=== PATIENT | male | born 2000 | race Caucasian/White ===

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

== ENCOUNTER 2019-02-06 11:39 | Emergency (ER) | payer MEDICAID, SELFPAY ==
[2019-02-06 11:42] VITALS: BP 124/68; PULSE 78; RESP 16; TEMP 36.7; O2SAT 97
--- NOTE | 2019-02-06 12:11 | ED.GENADUL_ITS ---
Discharge Plan Disposition Patient Disposition: HOME Condition: Good Discharge Details Chief Complaint: Orthopedic Clinical Impression: Fracture of fifth metacarpal bone Primary Care Provider: Kwadwo Conway ED Provider: Yamilka Bentley Home Meds and New Rx's Prescriptions: No Action aripiprazole [Abilify] 5 mg tablet 5 mg PO DAILY RF: 0 fluoxetine [Prozac] 20 mg capsule 20 mg PO DAILY RF: 0 omeprazole 20 mg capsule,delayed release(DR/EC) 20 mg PO DAILY RF: 0 quetiapine [Seroquel] 50 mg Tablet 50 mg PO DAILY RF: 0 Discharge Instructions Instructions: Hand Fracture (ED) Additional Instructions: Ice to area of swelling. Keep splint intact, clean and dry. Elevate arm for swelling. Call orthopedic doctor for followup. Use motrin or tyelnol for pain if needed. Return for any worsening or concerns sooner if needed. Stand Alone Forms: Work Release Referrals: Po Peters MD [ [facility] STAFF PHYSICIAN] - HPI General Date/Time Provider Initiated Documentation: 02/06/19 12:04 . HPI Narrative: Patient presents for complaints of hand injury. Patient punched a floor 2 days ago. Reports persistent hand pain overlying the right fifth metacarpal. Patient is right-handed. No open wounds. No numbness, tingling or weakness. No other sites of pain or concerns at this time. Related Data Home Medications Medication Instructions Recorded Confirmed quetiapine [Seroquel] 50 mg PO DAILY 08/26/18 02/06/19 aripiprazole 5 mg tablet 5 mg PO DAILY 01/27/19 02/06/19 fluoxetine 20 mg capsule 20 mg PO DAILY 01/27/19 02/06/19 omeprazole 20 mg capsule,delayed 20 mg PO DAILY 01/27/19 02/06/19 release Allergies Allergy/AdvReac Type Severity Reaction Status Date / Time risperidone Allergy Verified 02/06/19 11:47 General Stated Complaint: Orthopedic MIKHAIL: 4 Review of Systems Review of Systems CONSTITUTIONAL: The patient denies fevers, chills. EYES: Denies vision changes, blurry vision, or eye pain. RESPIRATORY: Denies cough GASTROINTESTINAL: Denies abdominal pain, changes in bowel, vomitting, or rectal bleeding. GENITOURINARY: Denies dysuria, hematuria, nocturia or frequency of urination. MUSCULOSKELETAL: Denies Joint pain, gait changes, deformities. NEUROLOGIC: Denies headaches, dizziness. Denies focal weakness. Denies numbness. INTEGUMENT: Denies rashes. PSYCHIATRIC: Denies behavior changes. Denies anxiety or depression. ENDOCRINOLOGY: Denies heat or cold intolerance. Denies fatigue. PSYCHIATRY: Denies depression, agitation or anxiety. ALLERGIC/IMMUNOLOGIC: Denies urticaria, lip or tongue swelling. All systems reviewed & are unremarkable except as noted in HPI and below PFSH Medical History Abnormal gait (Acute) ADHD (Acute) Behavioral disorder (Acute) Bipolar disease, chronic (Acute) Depression (Chronic) GERD (gastroesophageal reflux disease) (Chronic) Hypothyroidism (Chronic) Kyphosis (Acute) Meatal stenosis (Acute) Myopia (Acute) PTSD (post-traumatic stress disorder) (Acute) Sleep disorder (Acute) Suicide attempt (Acute) Tibial torsion (Acute) Tremor (Acute) Family History Mother Heart disease Uncle Heart disease Father ADD (attention deficit disorder) Bipolar disorder Social History Smoking/Tobacco Use Status: Never Alcohol Intake: current Alcohol Intake frequency: holidays/special occasions only Drug use: Socially Substance use type: marijuana Details: No IV Drug Use No marijuana since October 2018 Adopted: No Caregiver/Support person: Yes Household members: caregiver Do you need help understanding health information?: Rarely current occupation: [employer] 20 hours a week Sexually active: No Do you think of yourself as: bisexual Current gender identity: male What type of physical activity do you participate in: other Details: package wrapper at [employer] Do you feel safe at home: Yes Do you feel safe in your relationship?: Yes Exam Narrative Exam Narrative: CONST: Healthy appearing patient, in no acute distress. Well hydrated. Alert and alert. HENMT: Head nomocephalic, normal to inspection. Atraumatic. Hearing grossly normal. EYES: General normal appearance. Alignment normal. Eyelids normal. Conjunctiva normal. NECK: Normal visual inspection. FROM. Trachea midline. No Midline tenderness. CHEST: Normal insepection of the chest. RESP: Normal respiratory effort. Speaking full sentences. No cough. No audible wheezing. No retractions. CARDIO: No JVD. SKIN: Normal. Dry. No rashes. EXTREM: Patient with a right hand pain with palpation along the fourth and fifth metacarpals. Mild swelling present overlying the fifth metacarpal. No obvious deformity. No scissoring of fingers with district medical examiner. Distal neurovascularly intact. No pain with palpation of the wrist, forearm or elbow. No open wounds. NEURO: Alert and awake. Speech clear. PSYCH: Normal affect. Cooperative. Course Vital Signs Temperature 36.7 C 02/06/19 11:42 Pulse 78 02/06/19 11:42 Respiratory Rate 16 02/06/19 11:42 Blood Pressure 124/68 02/06/19 11:42 Pulse Oximetry 97 02/06/19 11:42 Temperature 36.7 C 02/06/19 11:42 Temperature Source Skin 02/06/19 11:42 Pulse 78 02/06/19 11:42 Respiratory Rate 16 02/06/19 11:42 Respiratory Effort 02/06/19 11:48 Blood Pressure 124/68 02/06/19 11:42 Blood Pressure Position Sitting 02/06/19 11:42 Pulse Oximetry 97 02/06/19 11:42 Oxygen Delivery Method Room Air 02/06/19 11:42 Oxygen Flow Rate 0 02/06/19 11:42 Pain Level 6 02/06/19 11:42 Procedures Orthopedic Splinting/Casting ulnar gutter splint - right, orthoglass padded: Side: right Upper Extremity Injury Location: hand Upper Extremity Immobilizer: ulnar gutter
--- NOTE | 2019-02-06 12:32 | DI.RAD_ITS ---
SYMPTOM/DIAGNOSIS: 4TH AND 5TH METACARPAL PAIN, PUNCHING INJURY RIGHT HAND: There is a fracture seen extending transversely through the mid 5th metacarpal. There is ventral angulation. No additional fractures are seen. IMPRESSION: 5th metacarpal fracture.
--- NOTE | 2019-02-06 12:55 | DI.VRAD_ITS ---
EXAM: XR Right Hand EXAM DATE/TIME: 02/06/2019 12:10 PM CLINICAL HISTORY: 19 years old, male; Hand; Right; Patient HX: Punching injury, pain in 4th and 5th metacarpal area TECHNIQUE: Imaging protocol: XR Right hand. Views: 3 or more views. COMPARISON: No relevant prior studies available. FINDINGS: Bones/joints: Transverse midshaft fracture of the fifth metacarpal.. Posterior bowing deformity. Soft tissues: Soft tissue swelling adjacent to the fifth metacarpal IMPRESSION: Transverse midshaft fracture of the fifth metacarpal.. Posterior bowing deformity. Dictated and Authenticated by: Cyndy Mayo MD. Ordering:STUART Prather MD
[2019-02-06 13:35] VITALS: BP 124/68; PULSE 78; RESP 16; TEMP 36.7; O2SAT 97
== END 2019-02-06 13:31 | disposition home or self-care (01) ==
PROVIDERS: Emergency Provider Physician Assistant; PCP Family Medicine
DX: S62.326A Displaced fracture of shaft of fifth metacarpal bone, right hand, initial encounter for closed fracture (principal); W22.09XA Striking against other stationary object, initial encounter
CPT/HCPCS: 26600; 73130

== ENCOUNTER 2019-02-10 10:56 | Outpatient (CLI) | payer MEDICAID, SELFPAY ==
--- NOTE | 2019-02-10 10:44 | DI.RAD_ITS ---
SYMPTOM/DIAGNOSIS: RT HAND FRACTURE RIGHT HAND: Three views. Comparison is 02/06/19 There is again seen a fracture of the mid shaft of the right 5th metacarpal. There is volar angulation of the fracture, associated soft tissue swelling is noted.
== END 2019-02-10 11:16 ==
PROVIDERS: PCP Family Medicine; Visit Provider Physician Assistant
DX: S62.356D Nondisplaced fracture of shaft of fifth metacarpal bone, right hand, subsequent encounter for fracture with routine healing (principal); M79.89 Other specified soft tissue disorders
CPT/HCPCS: 73120; 73130

== ENCOUNTER 2019-02-10 11:34 | Outpatient (CLI) | payer MEDICAID, SELFPAY ==
--- NOTE | 2019-02-10 11:02 | DI.RAD_ITS ---
SYMPTOM/DIAGNOSIS; RIGHT HAND FRACTURE RIGHT HAND: Two views. Comparison is made with examination from earlier in the day. Thee has been slight apparent reduction of the right 5th metacarpal fracture. There is persistent mild volar angulation. The patient's wrist is in a cast.
== END 2019-02-10 11:54 ==
PROVIDERS: PCP Family Medicine; Visit Provider Physician Assistant
DX: S62.356D Nondisplaced fracture of shaft of fifth metacarpal bone, right hand, subsequent encounter for fracture with routine healing (principal)
CPT/HCPCS: 73120

== ENCOUNTER 2019-02-17 12:07 | Outpatient (REF) | payer MEDICAID, SELFPAY ==
[2019-02-17 19:10] LABS: Abs Immature Grans 0.02 k/cumm (0.0-0.09); Absolute Basophil Count 0.03 k/cumm (0.0-0.2); Absolute Eosinophil Count 0.05 k/cumm (0.0-0.7); Absolute Lymphocyte Count 1.67 k/cumm (1.2-3.4); Absolute Monocyte Count 0.56 k/cumm (0.11-0.7); Absolute Neutrophil Count 3.72 k/cumm (1.2-6.7); Basophils % 0.5; Eosinophils % 0.8; HCT 47.1 % (40.0-50.0); HGB 15.8 g/dL (13.5-17.5); Immature Grans % 0.3; Lymphocytes % 27.6; Mean Corp. HGB Concentration 33.5 g/dL (32.0-36.0); Mean Corpuscular Hemoglobin 31.7 pg (27.0-33.0); Mean Corpuscular Volume 94.4 fL (80-95); Mean Platelet Volume 10.9 fL (8.0-11.0); Monocytes % 9.3; Neutrophils % 61.5; Platelet Count 270 x1000/uL (130-400); RBC 4.99 m/cumm (4.50-6.00); RBC Distribution Width 12.8 % (11.8-14.1); White Blood Cell Count 6.05 k/cumm (4.4-10.8)
[2019-02-17 19:52] LABS: TSH (W/Ref FT4) 2.91 uIU/mL (0.36-3.74)
== END 2019-02-17 12:27 ==
LOC: LBN 12:07
PROVIDERS: PCP Family Medicine; Visit Provider Family Medicine
DX: R53.83 Other fatigue (principal)
CPT/HCPCS: 84443; 85025

== ENCOUNTER 2019-02-25 01:33 | Outpatient (CLI) | payer MEDICAID, SELFPAY ==
--- NOTE | 2019-02-25 14:39 | DI.CT_ITS ---
SYMPTOMS/DIAGNOSIS: NEW ONSET MIGRAINE WITH ATYPICAL FEATURES, G43.[address]: No intracranial hemorrhage, mass or infarct is seen. The ventricles are normal in size. There is no evidence of skull fracture. The sinuses and mastoid air cells appear clear. The orbits are unremarkable. IMPRESSION: Negative head CT.
== END 2019-02-25 01:53 ==
PROVIDERS: PCP Family Medicine; Visit Provider Family Medicine
DX: G43.909 Migraine, unspecified, not intractable, without status migrainosus (principal)
CPT/HCPCS: 70450

== ENCOUNTER 2019-03-02 10:48 | Outpatient (CLI) | payer MEDICAID, SELFPAY ==
--- NOTE | 2019-03-02 10:42 | DI.RAD_ITS ---
EXAM: XR HAND RT COMPLETE INDICATION: f/u. COMPARISON: XR hand RT limited from 02/10/2019 TECHNIQUE: 2D digital imaging was performed. FINDINGS: Three views were obtained and show previously described fracture of the midshaft of the 5th metacarpa l. There is increased angulation in a volar and radial direction of the distal fracture fragment in comparison with previous examination of February 10.
== END 2019-03-02 11:08 ==
PROVIDERS: PCP Family Medicine; Visit Provider Orthopaedic Surgery
DX: S62.356D Nondisplaced fracture of shaft of fifth metacarpal bone, right hand, subsequent encounter for fracture with routine healing (principal)
CPT/HCPCS: 73130

== ENCOUNTER 2019-03-23 15:40 | Outpatient (CLI) | payer MEDICAID, SELFPAY ==
--- NOTE | 2019-03-23 11:33 | DI.RAD_ITS ---
EXAM: XR HAND RT LIMITED INDICATION: f/u. COMPARISON: XR HAND RT COMPLETE from 03/02/2019 TECHNIQUE: 2D digital imaging was performed. FINDINGS: The cast has been removed. There has been no change in the alignment of the fifth metacarpal. There is callus formation. No new abnormalities are seen.
== END 2019-03-23 16:00 ==
PROVIDERS: PCP Family Medicine; Visit Provider Orthopaedic Surgery
DX: S62.356D Nondisplaced fracture of shaft of fifth metacarpal bone, right hand, subsequent encounter for fracture with routine healing (principal)
CPT/HCPCS: 73120

== ENCOUNTER 2020-06-06 15:03 | Outpatient (REF) | payer MEDICAID, SELFPAY ==
[2020-06-07 12:05] LABS: COVID-19 RT-PCR UVMMC Result Negative (Negative)
== END 2020-06-06 15:23 ==
LOC: LBN 15:03
PROVIDERS: PCP Family Medicine; Visit Provider Nurse Practitioner Family
DX: Z11.59 Encounter for screening for other viral diseases (principal); Z78.9 Other specified health status
CPT/HCPCS: U0003

== ENCOUNTER 2021-09-06 03:33 | Outpatient (CLI) | payer MEDICAID, SELFPAY ==
[2021-09-06 12:34] LABS: TSH (W/Ref FT4) 1.47 uIU/mL (0.36-3.74)
== END 2021-09-06 03:34 | disposition home or self-care (01) ==
LOC: LBO 03:33
PROVIDERS: PCP Family Medicine
DX: R63.5 Abnormal weight gain (principal)
CPT/HCPCS: 36415; 84443

== ENCOUNTER 2021-12-17 17:56 | Emergency (ER) | payer MEDICAID, SELFPAY ==
[2021-12-17 18:01] VITALS: BP 141/58; PULSE 89; RESP 18; O2SAT 95
--- NOTE | 2021-12-17 18:45 | DI.CT_ITS ---
Exam(s) CT ABDOMEN PELVIS WO EXAM: CT ABDOMEN PELVIS WO CLINICAL HISTORY: Rectal bleeding, Vomiting, Mid epigastric pain. TECHNIQUE: Imaging Protocol: Axial computed tomography images with coronal and sagittal reformatted images were created and reviewed. Oral: / no COMPARISON: No exams were available for comparison FINDINGS: ABDOMEN: Lung Bases: Normal where visualized. Liver: Fatty infiltration.. No measurable mass. Gallbladder and biliary tract: Gallbladder contracted. No radiodense calculus or dilation. Pancreas: Normal density, no abnormal calcifications or inflammatory process. Spleen: Normal. Kidneys: Normal size, contour and axis. No radiodense stones or obstructive uropathy. No masses seen. Adrenal glands: No masses seen. Lymph nodes: Within normal limits. Abdominal Aorta: Abdominal portion non-dilated. PELVIS: Bladder: Symmetric distention, no gross wall thickening. Bowel: Moderate quantity of stool. No obstruction or bowel wall thickening. Appendix normal. Peritoneal cavity: No ascites, collection or mesenteric inflammatory response. Reproductive organs: Within normal limits. Bones: Within normal limits. IMPRESSION: Unremarkable CT scan of the abdomen and pelvis. RADIATION DOSE DELIVERED: 1,455.73mGy.cm Total DLP DATA REPOSITORY: All CT scans at this facility are submitted to the National Radiology Data Registry (NRDR) Dose Index Registry (DIR) with the [employer] (ACR). RADIATION OPTIMIZATION: All CT scans at this facility use at least one of these dose optimization te chniques: automated exposure control; mA and/or kV adjustment per patient size (includes targeted exa ms where dose is matched to clinical indication); or iterative reconstruction.
--- NOTE | 2021-12-17 18:51 | ED.GENADUL_ITS ---
Discharge Plan Disposition Patient Disposition: HOME Condition: Stable Discharge Details Clinical Impression: Peptic ulcer disease, Bright red rectal bleeding Primary Care Provider: Kwadwo Conway ED Provider: Zoe Hughes Home Meds and New Rx's Prescriptions: Continued aripiprazole [Abilify] 5 mg tablet 5 mg PO DAILY Label Comments: Dr Garcia at [facility] prescribes trazodone 50 mg tablet 50 mg PO QHS sertraline 50 mg tablet 50 mg PO omeprazole 10 mg capsule,delayed release(DR/EC) 10 mg PO DAILY Qty: 90 3RF No Action hydrocortisone 2.5 % cream 1 applic topical BID PRN (Reason: rectal pain & bleeding) Qty: 20 0RF Rx Instructions: apply thin layer to rectum twice per day x4 d, then as needed for rectal pain & bleeding. omeprazole 40 mg capsule,delayed release(DR/EC) 40 mg PO DAILY Qty: 30 0RF Discharge Instructions Instructions: Diet for Stomach Ulcers and Gastritis (ED), GERD (Gastroesop hageal Reflux Disease) (ED) Additional Instructions: At this time there is no acute abnormality on CT. Please continue take the omeprazole as previously prescribed. You may try Maalox [id number] as well. Please follow-up with general surgery for possible scope within the next 1 to 2 weeks. Follow up with primary care provider in 3-5 days. Return to ED sooner if any worsening or concerns. Increase oral fluids. Stand Alone Forms: Work Release Referrals: Cornelia Solomon DO [OSTEOPATHIC DOCTOR] - 1 week Discharge Data Discharge Date/Time-TO BE ENTERED AT DEPARTURE: 12/17/21 20:58 Medical Decision Making 21-year-old male presents to the ER with chief complaint of midepigastric abdominal pain, vomiting, rectal bleeding. CBC, CMP, urinalysis, lipase, troponin ordered CT abdomen pelvis. At this time I do suspect peptic ulcer disease or similar will consider referral to general surgery for outpatient EGD pending work-up. CBC within normal limits CMP largely within normal limits, no evidence for major bleeding or infection. CT abdomen pelvis shows no acute abnormality. Patient to be discharged home with referral for general surgery for possible EGD. Discussed home care and to continue taking his omeprazole patient was given a GI cocktail here in department prior to discharge. This text was generated using Crediiation system, please disregard any oddities of phrase or misspellings. Medical Records Medical records reviewed: Yes I reviewed the patient's medical records. Lab Data Lab results reviewed: Yes I reviewed the patient's lab results. Labs: Laboratory Tests Range/Units 12/17/21 12/17/21 12/17/21 19:08 19:08 19:31 WBC (4.4-10.8) 10^3/uL 5.98 RBC (4.36-5.78) 10^6/uL 4.67 Hgb (13.5-17.5) g/dL 14.6 Hct (40.0-50.0) % 43.3 MCV (80-95) fL 93 MCH (27.0-33.0) pg 31.3 MCHC (32.0-36.0) % 33.7 RDW (11.8-14.1) % 12.7 Plt Count (130-400) 10^3/uL 252 MPV (8.0-11.0) fL 10.1 Immature Gran % 0.2 Neutrophils % 60.5 Lymphocytes % 26.3 Monocytes % 10.5 Eosinophils % 1.5 Basophils % 1.0 Nucleated RBC % (0.0-0.3) % 0.0 Absolute Neutrophils (1.2-6.7) 10^3/uL 3.62 Absolute Lymphocytes (1.2-3.4) 10^3/uL 1.57 Absolute Monocytes (0.1-0.8) 10^3/uL 0.63 Absolute Eosinophils (0.0-0.7) 10^3/uL 0.09 Absolute Basophils (0.0-0.2) 10^3/uL 0.06 Sodium Cancelled 138 Potassium Cancelled 4.0 Chloride Cancelled 104 Carbon Dioxide Cancelled 24.8 Anion Gap Cancelled 9.2 BUN Cancelled 20 H Creatinine Cancelled 1.0 Estimated GFR/1.73 m2 Cancelled >= 60.00 Glucose Cancelled 110 H Calcium Cancelled 8.9 Magnesium Cancelled 2.0 Total Bilirubin Cancelled 0.4 AST Cancelled 22 ALT Cancelled 69 H Alkaline Phosphatase Cancelled 115 Troponin I Cancelled < 50 Total Protein Cancelled 6.9 Albumin Cancelled 3.6 Lipase Cancelled 78 HPI General Mode of arrival: ambulatory . Date/Time Provider Initiated Documentation: 12/17/21 17:56 . Limitations to Documentation: no limitations . Information obtained by: patient, RN notes reviewed and old records reviewed . HPI Narrative: 21-year-old male presents to the ER with chief complaint of midepigastric abdominal pain, vomiting, rectal bleeding. He reports that the midepigastric pain has gotten worse over the last week. He reports vomiting up black chunks. He reports intermittent bright red rectal bleeding which is painful intermittently since April. he reports he has never been told he has hemorrhoids. He does take a daily omeprazole. He denies any shortness of breath cough fever chills or any other associated symptoms. Past medical history includes GERD, PTSD, bipolar, depression, ADHD, hypothyroidism. He reports occasional alcohol none in the last week, he also report ibuprofen last taken 2 weeks ago. Related Data Home Medications Medication Instructions Recorded Confirmed aripiprazole 5 mg tablet (Abilify) 5 mg PO DAILY 01/27/19 12/17/21 trazodone 50 mg tablet 50 mg PO QHS 11/14/19 12/17/21 omeprazole 10 mg capsule,delayed 10 mg PO DAILY #90 caps 06/06/21 12/17/21 release sertraline 50 mg tablet 50 mg PO 06/19/21 07/05/21 hydrocortisone 2.5 % topical cream 1 applic topical BID PRN rectal 12/19/21 12/19/21 pain & bleeding #20 grams omeprazole 40 mg capsule,delayed 40 mg PO DAILY #30 caps 12/19/21 12/19/21 release Previous Rx's Medication Instructions Recorded omeprazole 10 mg capsule,delayed 10 mg PO DAILY #90 caps 06/06/21 release hydrocortisone 2.5 % topical cream 1 applic topical BID PRN rectal 12/19/21 pain & bleeding #20 grams omeprazole 40 mg capsule,delayed 40 mg PO DAILY #30 caps 12/19/21 release Allergies Allergy/AdvReac Type Severity Reaction Status Date / Time risperidone Allergy Severe Seizure Verified 12/19/21 09:52 General Stated Complaint: [facility] MIKHAIL: 3 Review of Systems All systems reviewed & are unremarkable except as noted in HPI and below Constitutional Constitutional: Reports as per HPI, Denies body ache(s) and Denies fever(s) Gastrointestinal Gastrointestinal: Reports abdominal pain, Reports hematochezia, Reports heartburn, Denies nausea and Denies vomiting Genitourinary Genitourinary: Denies dysuria PFSH All Active Problems (Updated 12/17/21 @ 20:41 by Zoe Hughes NP) Peptic ulcer disease (Chronic) Bright red rectal bleeding (Acute) Bilateral tibial torsion (Acute) BRBPR (bright red blood per rectum) (Acute) Family history of cardiovascular disorder (Acute) Cough productive of clear sputum (Acute) Weight gain (Acute) Encounter for annual health examination (Acute) Fracture of fifth metacarpal bone of right hand (Acute 02/05/19) Myopia (Acute) GERD (gastroesophageal reflux disease) (Chronic) Sleep disorder (Acute) PTSD (post-traumatic stress disorder) (Acute) Bipolar disease, chronic (Acute) Depression (Chronic) Meatal stenosis (Acute) Behavioral disorder (Acute) Tremor (Acute) ADHD (Acute) Tibial torsion (Acute) Kyphosis (Acute) Abnormal gait (Acute) Hypothyroidism (Chronic) Medical History Suicide attempt Family History Mother Heart disease Uncle Heart disease Father ADD (attention deficit disorder) Bipolar disorder Social History (Updated 07/05/21 @ 11:56 by Madison Dawkins RN) Smoking/Tobacco Use Status: Never Second Hand Exposure: Yes Smoking risk assessment performed?: Yes Alcohol Intake: current Alcohol Intake frequency: holidays/special occasions only Substance use type: former substance user and marijuana Details: Former cannabis smoker. 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 [employer] Sexually active: No Do you think of yourself as: bisexual Current gender identity: male What is your relationship status?: never How often do you talk on the phone with friends or family?: three or more times per week How often do you get together with friends or relatives?: once per week Do you belong to any clubs or organized social groups?: yes Panel score (0-1 are the most socially isolated patients): 2 What type of physical activity do you participate in: weight lifting Duration: < 15 minutes/day Frequency: daily Yulia/Christian: None Special yulia needs: No Seatbelt use: always Helmet use: Yes Helmet use: sometimes Drive intox or ride w/intox regional owner operator truck driver: No Do you feel safe at home: Yes Do you feel safe in your relationship?: Yes Exam Narrative Exam Narrative: General: Well Developed, Awake and Alert, conversant. Skin: Warm and Dry HEENT: Head: No palpable deformities, Normocephalic Eyes: Pupils PERRLA, EOM's intact. No periorbital eccymosis or step off Ears: Canal patent. Tympanic membranes are clear . No grimaldo's sign, no hemptympanum. Nose/Face: Atraumatic. Facial bones nontender to palpation and stable with manipulation. Mouth/Throat: No intraoral trauma. Teeth and mandible are intact. Neck: No midline tenderness, no step off, no deformity to palpation of C-spine. Trachea midline. Chest: No surface trauma. Nontender without crepitus or deformity. Lungs clear to ausculatation bilaterally. Heart: RRR, no rubs, murmurs or gallop. Abdomen: No abrasions, ecchymosis, or surface trauma. Nondistended. Pressure with midepigastrium palpation. Nontender rest of abdominal quadrants. Pelvis: Nontender to palpation and stable to compression. Femoral pulses strong and equal Extremities: no surface trauma. Sensation intact. Peripheral pulses intact and equal. Neuro: ANO x4, GCS 15, cranial nerves II through XII intact. Motor and sensory exam nonfocal. Reflexes are symmetric. Course Vital Signs Vital signs: Vital Signs Pulse 89 12/17/21 18:01 Respiratory Rate 18 12/17/21 18:01 Blood Pressure 141/58 H 12/17/21 18:01 Pulse Oximetry 95 12/17/21 18:01 Pulse 89 12/17/21 18:01 Respiratory Rate 18 12/17/21 18:01 Respiratory Effort Non-Labored 12/17/21 18:26 Respiratory Depth Normal 12/17/21 18:18 Respiratory Pattern Normal 12/17/21 18:18 Blood Pressure 141/58 H 12/17/21 18:01 Blood Pressure Position Sitting 12/17/21 18:01 Pulse Oximetry 95 12/17/21 18:01 Oxygen Delivery Method Room Air 12/17/21 18:01 Oxygen Flow Rate 0 12/17/21 18:01 Pain Level 3 12/17/21 18:01 PAWSS Have you Been Recently Intoxicated or Drunk Within the Last 30 days?: Yes Have you Ever Experienced Previous Episodes of Alcohol Withdrawal?: No Have you ever Experienced Withdrawal Seizures?: No Have you ever Experienced Delirium Tremens(DT)s?: No Have you ever undergone Alcohol Rehabilitation Treatment (i.e, inpt ot outpat ient treatment programs)?: No Have you ever Experienced Blackouts?: No Have you ever Combined Alcohol with other Downers within the last 90 days?: No Have you ever Combined Alcohol with any other Substance of Abuse during the last 90 days?: No Positive Blood Alcohol level on Presentation? [PCS.BAL]: No Evidence of Increased Autonomic Activity (i.e. HR>120, tremor, sweating, agitation, nausea)?: No Result: 1
[2021-12-17 19:14] LABS: Abs Immature Grans 0.01 10^3/uL (0.0-0.06); Absolute Basophil Count 0.06 10^3/uL (0.0-0.2); Absolute Eosinophil Count 0.09 10^3/uL (0.0-0.7); Absolute Lymphocyte Count 1.57 10^3/uL (1.2-3.4); Absolute Monocyte Count 0.63 10^3/uL (0.1-0.8); Absolute Neutrophil Count 3.62 10^3/uL (1.2-6.7); Eosinophils % 1.5; HCT 43.3 % (40.0-50.0); HGB 14.6 g/dL (13.5-17.5); Immature Grans % 0.2; Lymphocytes % 26.3; MCH 31.3 pg (27.0-33.0); MCHC 33.7 % (32.0-36.0); MCV 93 fL (80-95); MPV 10.1 fL (8.0-11.0); Monocytes % 10.5; Neutrophils % 60.5; Platelet Count 252 10^3/uL (130-400); RBC 4.67 10^6/uL (4.36-5.78); RDW 12.7 % (11.8-14.1); RDW-SD 43.3 fL; WBC 5.98 10^3/uL (4.4-10.8)
[2021-12-17 19:58] LABS: ALT 69 U/L (16-63); AST 22 U/L (15-37); Albumin 3.6 g/dL (3.4-5.0); Alkaline Phosphatase 115 U/L (46-116); Anion Gap 9.2 mmol/L (3-11); BUN 20 mg/dL (7-18); Bilirubin, Total 0.4 mg/dL (0.2-1.0); CO2 24.8 mmol/L (21.0-32.0); Calcium 8.9 mg/dL (8.5-10.1); Chloride 104 mmol/L (98-107); Glucose 110 mg/dL (74-106); Lipase 78 U/L (73-393); Sodium 138 mmol/L (136-145); Total Protein 6.9 g/dL (6.4-8.2); Troponin I < 50 ng/L (<or=60)
--- NOTE | 2021-12-17 20:25 | DI.VRAD_ITS ---
PROCEDURE INFORMATION: Exam: CT Abdomen And Pelvis Without Contrast Exam date and time: 12/17/2021 8:00 PM Age: 21 years old Clinical indication: Other: Rectal bleeding, vomiting, mid epigastric pain TECHNIQUE: Imaging protocol: Computed tomography of the abdomen and pelvis without contrast. Radiation optimization: All CT scans at this facility use at least one of these dose optimization techniques: automated exposure control; mA and/or kV adjustment per patient size (includes targeted exams where dose is matched to clinical indication); or iterative reconstruction. COMPARISON: No relevant prior studies available. FINDINGS: Liver: Hepatomegaly. Gallbladder and bile ducts: Gallbladder contracted. Pancreas: Normal. No ductal dilation. Spleen: Normal. No splenomegaly. Adrenal glands: Normal. No mass. Kidneys and ureters: Normal. No hydronephrosis. Stomach and bowel: Unremarkable. No obstruction. No mucosal thickening. Appendix: The appendix is well seen, within normal limits. Intraperitoneal space: Unremarkable. No free air. No significant fluid collection. Vasculature: Unremarkable. No abdominal aortic aneurysm. Lymph nodes: Unremarkable. No enlarged lymph nodes. Urinary bladder: Unremarkable as visualized. Reproductive: Unremarkable as visualized. Bones/joints: Unremarkable. No acute fracture. Soft tissues: Unremarkable. Other findings: Moderate fecal retention pattern. IMPRESSION: No acute abnormality seen to account for symptoms. Dictated and Authenticated by: Gabbi Santiago MD. Ordering:LILIBETH Enriquez MD
== END 2021-12-17 20:58 | disposition home or self-care (01) ==
PROVIDERS: Emergency Provider Registered Nurse Emergency; PCP Family Medicine
DX: K27.9 Peptic ulcer, site unspecified, unspecified as acute or chronic, without hemorrhage or perforation (principal); K62.5 Hemorrhage of anus and rectum; K21.9 Gastro-esophageal reflux disease without esophagitis; Z77.22 Contact with and (suspected) exposure to environmental tobacco smoke (acute) (chronic)
CPT/HCPCS: 80053; 83690; 99284; 74176; 83735; 84484; 85025

== ENCOUNTER 2021-12-21 12:11 | Emergency (ER) | payer MEDICAID, SELFPAY ==
[2021-12-21 12:27] VITALS: BP 141/61; PULSE 75; RESP 16; TEMP 36.8; O2SAT 96
--- NOTE | 2021-12-21 12:35 | ED.GENADUL_ITS ---
Discharge Plan Disposition Patient Disposition: HOME Condition: Stable Discharge Details Clinical Impression: Bright red rectal bleeding Primary Care Provider: Kwadwo Conway ED Provider: Zoe Hughes Home Meds and New Rx's Prescriptions: Continued aripiprazole [Abilify] 5 mg tablet 5 mg PO DAILY Label Comments: Dr Garcia at [facility] prescribes trazodone 50 mg tablet 50 mg PO QHS sertraline 50 mg tablet 50 mg PO hydrocortisone 2.5 % cream 1 applic topical BID PRN (Reason: rectal pain & bleeding) Qty: 20 0RF Rx Instructions: apply thin layer to rectum twice per day x4 d, then as needed for rectal pain & bleeding. omeprazole 40 mg capsule,delayed release(DR/EC) 40 mg PO DAILY Qty: 30 0RF omeprazole 10 mg capsule,delayed release(DR/EC) 10 mg PO DAILY Qty: 90 3RF Discharge Instructions Instructions: Rectal Bleeding (ED) Additional Instructions: At this time your labs are still stable. Please keep your upcoming appointment on the with general surgery. Please call them on Thursday morning to see if he can get in sooner. Continue using the hydrocortisone cream. You may want to discuss work-up for possible colitis or inflammatory bowel syndrome. [place] diet, stay away from anything fried, fatty, or spicy. Follow up with General Surgery in 3-5 days. Return to ED sooner if any worsening bleeding, dizziness, or concerns. Increase oral fluids. Stand Alone Forms: Work Release Referrals: Windy Kuhn MD [ [facility] STAFF PHYSICIAN] - 3 days (Call Thursday am) Discharge Data Discharge Date/Time-TO BE ENTERED AT DEPARTURE: 12/21/21 14:14 Medical Decision Making 21-year-old male presents to the ER for the second time in 1 week for bright red rectal bleeding. Patient was seen by myself on December 17Thursday and was seen by his PCP 48 hours ago. He had a stable hemoglobin at that time and PCP visit. He presents today for continued bright red rectal bleeding which has worsened. He was given hydrocortisone cream and increased on omeprazole by PCP. Rectal exam performed tenderness noted with exam, no visualized or palpated hemorrhoids. No gross rectal bleeding noted at this time. We will recheck CBC. Stool is guaiac positive. Patient does have an appointment upcoming on the with general surgery. Has been using hydrocortisone cream. CBC within normal limits hemoglobin continues to be stable at 14.1 hematocrit 42.7 Patient reevaluation there is noted some bright red blood on the tissue which patient reports that occurred when he wiped. Discussed that patient does not need to keep his appointment, discussed diet strict return instructions instructed to return if he feels he is lightheadedness dizziness weakness or severe worsening of bleeding he verbalizes understanding. This text was generated using [employer] dictation system, please disregard any oddities of phrase or misspellings. HPI General Mode of arrival: ambulatory . Date/Time Provider Initiated Documentation: 12/21/21 12:12 . Limitations to Documentation: no limitations . Information obtained by: patient, RN notes reviewed and old records reviewed . HPI Narrative: 21-year-old male presents to the ER for the second time in 1 week for bright red rectal bleeding. Patient was seen by myself on December 17Thursday and was seen by his PCP 48 hours ago. He had a stable hemoglobin at that time and PCP visit. He presents today for continued bright red rectal bleeding which has worsened. He was given hydrocortisone cream and increased on omeprazole by PCP. Related Data Home Medications Medication Instructions Recorded Confirmed aripiprazole 5 mg tablet (Abilify) 5 mg PO DAILY 01/27/19 12/21/21 trazodone 50 mg tablet 50 mg PO QHS 11/14/19 12/21/21 omeprazole 10 mg capsule,delayed 10 mg PO DAILY #90 caps 06/06/21 12/21/21 release sertraline 50 mg tablet 50 mg PO 06/19/21 07/05/21 hydrocortisone 2.5 % topical cream 1 applic topical BID PRN rectal 12/19/21 12/21/21 pain & bleeding #20 grams omeprazole 40 mg capsule,delayed 40 mg PO DAILY #30 caps 12/19/21 12/21/21 release Previous Rx's Medication Instructions Recorded omeprazole 10 mg capsule,delayed 10 mg PO DAILY #90 caps 06/06/21 release hydrocortisone 2.5 % topical cream 1 applic topical BID PRN rectal 12/19/21 pain & bleeding #20 grams omeprazole 40 mg capsule,delayed 40 mg PO DAILY #30 caps 12/19/21 release Allergies Allergy/AdvReac Type Severity Reaction Status Date / Time risperidone Allergy Severe Seizure Verified 12/21/21 12:31 General Stated Complaint: GenMedical MIKHAIL: 3 Review of Systems All systems reviewed & are unremarkable except as noted in HPI and below Gastrointestinal Gastrointestinal: Reports as per HPI, Denies abdominal pain, Reports hematochezia, Denies nausea and Denies vomiting Genitourinary Genitourinary: Denies dysuria, Denies urinary hesitancy and Denies urinary incontinence PFSH All Active Problems (Updated 12/21/21 @ 13:26 by Zoe Hughes NP) Bright red rectal bleeding (Acute) Peptic ulcer disease (Chronic) Bright red rectal bleeding (Acute) Bilateral tibial torsion (Acute) BRBPR (bright red blood per rectum) (Acute) Family history of cardiovascular disorder (Acute) Cough productive of clear sputum (Acute) Weight gain (Acute) Encounter for annual health examination (Acute) Fracture of fifth metacarpal bone of right hand (Acute 02/05/19) Myopia (Acute) GERD (gastroesophageal reflux disease) (Chronic) Sleep disorder (Acute) PTSD (post-traumatic stress disorder) (Acute) Bipolar disease, chronic (Acute) Depression (Chronic) Meatal stenosis (Acute) Behavioral disorder (Acute) Tremor (Acute) ADHD (Acute) Tibial torsion (Acute) Kyphosis (Acute) Abnormal gait (Acute) Hypothyroidism (Chronic) Medical History Suicide attempt Family History Mother Heart disease Uncle Heart disease Father ADD (attention deficit disorder) Bipolar disorder Social History (Updated 07/05/21 @ 11:56 by Madison Dawkins RN) Smoking/Tobacco Use Status: Never Second Hand Exposure: Yes Smoking risk assessment performed?: Yes Alcohol Intake: current Alcohol Intake frequency: holidays/special occasions only Substance use type: former substance user and marijuana Details: Former cannabis smoker. Adopted: No Caregiver/Support person: Yes (LUCIANA) Foster care: No Household members: caregiver Housing: apartment Number of Children: 0 number of grandchildren: 0 Communication Needs: Corrective Lenses Education Level: high school Do you need help understanding health information?: Rarely current occupation: [employer] ATTEND[employer] @ [employer] Sexually active: No Do you think of yourself as: bisexual Current gender identity: male What is your relationship status?: never How often do you talk on the phone with friends or family?: three or more times per week How often do you get together with friends or relatives?: once per week Do you belong to any clubs or organized social groups?: yes Panel score (0-1 are the most socially isolated patients): 2 What type of physical activity do you participate in: weight lifting Duration: < 15 minutes/day Frequency: daily Yulia/Anabaptism: None Special yulia needs: No Seatbelt use: always Helmet use: Yes Helmet use: sometimes Drive intox or ride w/intox class a truck driver: No Do you feel safe at home: Yes Do you feel safe in your relationship?: Yes Exam Narrative Exam Narrative: Constitutional: Alert and oriented x3. Appears stated age. Normal body habitus. Head: Normocephalic, no trauma. Eyes: Pupils PERRL, Red reflex noted, EOM's intact. Eyelids symmetrical without lesions, discharge, or swelling. Chest: RRR, Normal S1, S2, distal pulses intact. Resp: Lungs clear to auscultation bilaterally, no wheezes, rales, or rhonchi. Abdomen: Soft, non-distended, Normoactive bowel sounds all 4 quads. Rectal: Soft brown guaiac positive stool. No visualized hemorrhoids no palpated hemorrhoids or fissures on exam. Exam was painful for the patient. Patient does have bright red blood with wiping. Musculoskeletal: Normal gait, 5/5 strength to all four extremities. Skin: No suspicious rashes or lesions. Capillary refill less than 2 sec. Neurologic: Cranial nerves II-XII intact. Alert and oriented x 3. Motor: No deficits noted. Sensory: Intact bilaterally all 4 extremities. Reflexes: DTR's intact bilaterally.. Hematologic/Lymphatic: No ecchymosis, no lymphadenopathy. Course Vital Signs Vital signs: Vital Signs Temperature 36.8 C 12/21/21 12:27 Pulse 75 12/21/21 12:27 Respiratory Rate 16 12/21/21 12:27 Blood Pressure 141/61 H 12/21/21 12:27 Pulse Oximetry 96 12/21/21 12:27 Temperature 36.8 C 12/21/21 12:27 Temperature Source Temporal Artery Scan 12/21/21 12:27 Pulse 75 12/21/21 12:27 Respiratory Rate 16 12/21/21 12:27 Blood Pressure 141/61 H 12/21/21 12:27 Blood Pressure Position Sitting 12/21/21 12:27 Pulse Oximetry 96 12/21/21 12:27 Oxygen Delivery Method Room Air 12/21/21 12:27 Oxygen Flow Rate 0 12/21/21 12:27 Pain Level 6 12/21/21 12:27 Procedures Stool Hemoccult Procedural Steps Taken: stool placed in appropriate test area, developer placed on stool and control areas and controls appropriately positive and negative Hemoccult result: positive Additional Comments: Rectal exam performed patient does exhibit tenderness with exam, no palpated hemorrhoids, no visualized hemorrhoids, no fissures palpated guaiac positive. No significant gross bleeding noted at this time.
[2021-12-21 12:54] LABS: Abs Immature Grans 0.01 10^3/uL (0.0-0.06); Absolute Basophil Count 0.04 10^3/uL (0.0-0.2); Absolute Eosinophil Count 0.08 10^3/uL (0.0-0.7); Absolute Monocyte Count 0.43 10^3/uL (0.1-0.8); Absolute Neutrophil Count 2.52 10^3/uL (1.2-6.7); Basophils % 0.8; Eosinophils % 1.7; HCT 42.7 % (40.0-50.0); HGB 14.1 g/dL (13.5-17.5); Immature Grans % 0.2; Lymphocytes % 35.6; MCH 30.9 pg (27.0-33.0); MCV 93 fL (80-95); MPV 9.9 fL (8.0-11.0); Neutrophils % 52.7; Platelet Count 243 10^3/uL (130-400); RBC 4.57 10^6/uL (4.36-5.78); RDW 12.5 % (11.8-14.1); WBC 4.78 10^3/uL (4.4-10.8)
[2021-12-21 13:39] VITALS: RESP 18
== END 2021-12-21 14:14 | disposition home or self-care (01) ==
PROVIDERS: Emergency Provider Registered Nurse Emergency; PCP Family Medicine
DX: K62.5 Hemorrhage of anus and rectum (principal)
CPT/HCPCS: 36415; 99282; 85025

== ENCOUNTER 2022-01-03 08:19 | Day surgery (SDC) | payer MEDICAID, SELFPAY ==
--- NOTE | 2022-01-02 23:04 | W.PM.DSUDISC ---
Discharge Plan Disposition Patient Disposition: HOME Condition: Good Discharge Details Reason For Visit: Bright red blood per rectum Attending Provider: Leonel Wiggins Primary Care Provider: Kwadwo Conway Home Meds and New Rx's Prescriptions: Continued aripiprazole [Abilify] 5 mg tablet 5 mg PO HS Label Comments: Dr Garcia at [facility] prescribes trazodone 50 mg tablet 50 mg PO QHS sertraline 50 mg tablet 50 mg PO HS hydrocortisone 2.5 % cream 1 applic topical BID PRN (Reason: rectal pain & bleeding) Qty: 20 0RF Rx Instructions: apply thin layer to rectum twice per day x4 d, then as needed for rectal pain & bleeding. omeprazole 40 mg capsule,delayed release(DR/EC) 40 mg PO DAILY Qty: 30 0RF Discharge Instructions Instructions: Hemorrhoids (GEN), Colonoscopy (DC) Additional Instructions: 1. Schedule an appointment with your primary care doctor to review the care of hemorrhoids Referrals: Leonel Wiggins MD [ [facility] STAFF PHYSICIAN] - Activity:: Activity as Tolerated Diet:: As Tolerated Discharge Orders Discharge Orders: Discharge Order (Routine); Ordered 01/03/22 Ordered By: Leonel Wiggins Discharge Data Discharge Comment: ok to d/c home when SDU criteria met; alfredo
--- NOTE | 2022-01-02 23:06 | W.COLOREPORT ---
Colonoscopy Report Date of procedure: 01/03/22 Pre-op diagnosis general: Hematochezia Post-op diagnosis procedure note: other (Internal hemorrhoids) Procedure: Colonoscopy Surgeon: Leonel Wiggins Anesthesia Type: MAC Estimated blood loss (mL): 0 Pathology: none sent Complications: None Disposition: same day Indications: Jazzmine is a 19-year-old male with multiple episodes of bright red blood per rectum Prep: Miralax/Dulcolax Procedure Start Time: 10:00 Procedure End Time: 10:23 Retraction Time: 17 Findings: Internal hemorrhoids Procedure Description: After the induction of monitored anesthetic care, and with the patient in left lateral decubitus position, I began by performing an external anorectal exam.? Perineum and skin were normal, as was the anal verge.? There was no evidence of external hemorrhoids.? Next, I performed a digital rectal exam.? I did not appreciate any abnormal findings.? Next, I advanced a colonoscope into the rectal vault.? I performed retroflexion.? I did see signs of internal hemorrhoids.? Using insufflation, I then advanced the colonoscope beyond the rectal folds and into the sigmoid colon before advancing towards the cecum.? The quality of the prep was excellent.? The scope was noted to be in the cecum by identification of the ileocecal valve and appendiceal orifice.? I then began withdrawing the colonoscope using repeated irrigation as necessary for full evaluation of the colonic mucosa. ?Once the scope was withdrawn to the level of the rectum, great care was taken to examine portions of the rectal folds.? Finally, the scope was withdrawn and the patient was brought to the same-day surgery recovery unit as the anesthetic wore off. ?The findings and instructions were shared with the patient prior to discharge.
[2022-01-03 08:36] VITALS: BP 129/75; PULSE 76; RESP 19; TEMP 36.7; O2SAT 98
[2022-01-03] MEDS: Lactated Ringers 1,000 ML 80 ML IV (08:48)
--- NOTE | 2022-01-03 09:45 | ANES.PREOP_ITS ---
General Info Date of Service Date Performed: 01/03/22 Height: 5 ft 9 in Weight: 108.6 kg Body Mass Index (BMI): 35.3 Surgical Procedure: Operation Date: 01/03/22 09:50 Proposed Procedure Side Surgeon rk Wiggins MD Meds Allergies and Home Medications Allergies Allergy/AdvReac Type Severity Reaction Status Date / Time risperidone Allergy Severe Seizure Verified 01/03/22 08:33 Home Medication Medication Instructions Recorded aripiprazole 5 mg tablet (Abilify) 5 mg PO HS 01/27/19 trazodone 50 mg tablet 50 mg PO QHS 11/14/19 sertraline 50 mg tablet 50 mg PO HS 06/19/21 hydrocortisone 2.5 % topical cream 1 applic topical BID PRN rectal 12/19/21 pain & bleeding #20 grams omeprazole 40 mg capsule,delayed 40 mg PO DAILY #30 caps 12/19/21 release Current Visit Medications: Current Medications Generic Name Dose Route Start Last Admin Trade Name Freq PRN Reason Stop Dose Admin Ringer's Solution 1,000 mls @ 80 mls/hr 01/03/22 06:00 01/03/22 08:48 IV 02/01/22 23:59 80 mls/hr INFUSION TREMAYNE Administration IV Miscellaneous Supplies 1 each 01/03/22 06:00 Iv Access IV 02/01/22 23:59 DIRECTED TREMAYNE Sodium Chloride 0 ml 01/03/22 06:00 Normal Saline Flush 10 Ml Syr IV 02/01/22 23:59 PRN PRN Sodium Chloride 0 ml 01/03/22 06:00 Normal Saline 10 Ml Vial IJ 02/01/22 23:59 DIRECTED PRN Sterile Water 0 ml 01/03/22 06:00 Water,Injection,Sterile 10 Ml Vial IJ 02/01/22 23:59 DIRECTED PRN PFSH Active Problems Active Problems: Problem Status Onset Code Hypothyroidism E03.9 Abnormal gait R26.9 Kyphosis M40.209 Tibial torsion M21.869 ADHD F90.9 Tremor R25.1 Behavioral disorder Meatal stenosis Depression F32.9 Bipolar disease, chronic F31.9 PTSD (post-traumatic stress disorder) F43.10 Sleep disorder G47.9 GERD (gastroesophageal reflux disease) K21.9 Myopia H52.10 Fracture of fifth metacarpal bone of right hand 02/05/19 S62.306A Encounter for annual health examination Z00.00 Weight gain R63.5 Cough productive of clear sputum R05 Family history of cardiovascular disorder Z82.49 BRBPR (bright red blood per rectum) K62.5 Bilateral tibial torsion M21.861, M21.862 Peptic ulcer disease K27.9 Bright red rectal bleeding K62.5 Bright red rectal bleeding K62.5 Medical History Medical History Suicide attempt Medical History Comments:: PSTD triggers: yelling and loud noises Surgical History Surgical History (Updated 01/03/22 @ 08:36 by Christine De Leon, RN) Hx of removal of cyst Hx of wisdom tooth extraction Tobacco Smoking/Tobacco Use Status: Never Passive smoking exposure: No Second hand exposure: Yes Alcohol Alcohol Intake: current Alcohol intake frequency: holidays/special occasions only Substance Use Substance use type: former substance user and marijuana Details: Former cannabis smoker. Vital Signs and Lab Results Vital Signs Most Recent Vital Signs in EMR: Most Recent Vital Signs Temp Pulse Resp BP Pulse Ox 36.7 C 76 19 129/75 98 01/03/22 08:36 01/03/22 08:36 01/03/22 08:36 01/03/22 08:36 01/03/22 08:36 Lab Results Blood Type / Crossmatch: No Data to Display Complete Blood Count: White Blood Count 4.78 10^3/uL (4.4-10.8) 12/21/21 12:50 Red Blood Count 4.57 10^6/uL (4.36-5.78) 12/21/21 12:50 Hemoglobin 14.1 g/dL (13.5-17.5) 12/21/21 12:50 Hematocrit 42.7 % (40.0-50.0) 12/21/21 12:50 Platelet Count 243 10^3/uL (130-400) 12/21/21 12:50 Complete Metabolic Panel: Sodium Level 138 mmol/L (136-145) 12/17/21 19:31 Potassium Level 4.0 mmol/L (3.5-5.1) 12/17/21 19:31 Chloride Level 104 mmol/L (98-107) 12/17/21 19:31 Carbon Dioxide Level 24.8 mmol/L (21.0-32.0) 12/17/21 19:31 Blood Urea Nitrogen 20 mg/dL (7-18) H 12/17/21 19:31 Creatinine 1.0 mg/dL (0.70-1.30) 12/17/21 19:31 Estimated GFR/1.73 m2 >= 60.00 (mL/min/1.73m2) 12/17/21 19:31 Magnesium Level 2.0 mg/dL (1.8-2.4) 12/17/21 19:31 Calcium Level 8.9 mg/dL (8.5-10.1) 12/17/21 19:31 Albumin 3.6 g/dL (3.4-5.0) 12/17/21 19:31 Glucose Level 110 mg/dL (74-106) H 12/17/21 19:31 Liver Function Panel: Alanine Aminotransferase (ALT/SGPT) 69 U/L (16-63) H 12/17/21 1 9:31 Aspartate Amino Transf (AST/SGOT) 22 U/L (15-37) 12/17/21 19:31 Coagulation Panel: No Data to Display Cardiac Panel: Troponin I < 50 ng/L (<or=60) 12/17/21 Arterial Blood Gas: No Data to Display Venous Blood Gas: No Data to Display Pancreas Panel: Lipase 78 U/L (73-393) 12/17/21 19:31 Thyroid Panel: No Data to Display Infectious Disease: No Data to Display Blood Cultures: No Data to Display Toxicology Panel: No Data to Display Anesthesia Assessment and Plan Anesthesia History Personal History: No History of Anesthesia Complications Family History: No Family History of Anesthesia Complications Exercise Tolerance Exercise Tolerance: Metabolic Equivalents>4 Pertinent Negatives Pertinent Negatives: No Symptoms of GERD, No Major Cardiovascular Symptoms or Complaints, No Major Pulmonary Symptoms or Complaints and No History of CVA/TIA Cardiac & Pulmonary Exam Cardiac Exam: Normal S1/S2 Heart Sounds Pulmonary Exam: Clear Bilateral Breath Sounds Implantable Cardiac Device Does patient have a Pacemaker or an ICD?: No Airway Exam Known Difficult Airway: No Mallampati Class: 4 Mouth Opening: Narrow (< 3cm) Thyromental Distance: Greater than 3 cm Neck Range of Motion: Full ROM Neck Circumference: Thick Teeth Condition: Normal Dentition ASA Classification ASA Score: ASA 2 Emergency Case?: No NPO Status NPO Status: NPO Clears >2 hours, Solids >8 hours Anesthesia Plan Resuscitation Status: Full Code Anesthesia Technique: General Anesthesia Airway Planned: Natural Airway Monitors Used: Standard Monitors
[2022-01-03 09:47] VITALS: BMI 35.3
--- NOTE | 2022-01-03 10:33 | W.ANESPOSTOP ---
Postoperative Evaluation Date, Time and Location Date Performed: 01/03/22 Time Performed: 10:33 Patient Location: Day Surgery Unit Vital Signs Most Recent Imported Vital Signs: Most Recent Vital Signs Temp Pulse Resp BP Pulse Ox 36.7 C 76 19 129/75 98 01/03/22 08:36 01/03/22 08:36 01/03/22 08:36 01/03/22 08:36 01/03/22 08:36 Most Recent Manually Entered Vital Signs: Adult Blood Pressure: 127/61 Heart Rate: 67 Respirations: 12 Oxygen Saturation (%): 94 Temperature (C): 36.3 C Pain Score (0-10 Scale): 0 Pain Score Most Recent Pain Score: Most Recent Pain Score Pain Level 0 01/03/22 08:36 Assessment Mental Status: Awake (Alert & Oriented to Patient Baseline) Airway and Respiratory Function: Patent airway with normal (patient baseline) respiratory exam Cardiovascular Function: Hemodynamically Stable Hydration Status: Adequately Hydrated Nausea & Vomiting: No Nausea or Vomiting Pain: Pt. Denies Any Pain Peripheral Nerve Block: Patient did not receive a nerve block
[2022-01-03 10:35] VITALS: BP 127/61; PULSE 67; RESP 12; TEMPC 36.3; O2SAT 94
[2022-01-03 10:37] VITALS: BP 127/61; PULSE 74; RESP 16; TEMP 36.8; O2SAT 96
[2022-01-03 10:54] VITALS: BP 114/64; PULSE 75; RESP 18; TEMP 36.6; O2SAT 95
== END 2022-01-03 11:14 | disposition home or self-care (01) ==
PROVIDERS: PCP Family Medicine; Visit Provider Surgery
PROC: 0DJD8ZZ Inspection of Lower Intestinal Tract, Via Natural or Artificial Opening Endoscopic (ICD-10-PCS; CPT 45378; principal; 2022-01-03 09:45)
DX: K62.5 Hemorrhage of anus and rectum (principal); K21.9 Gastro-esophageal reflux disease without esophagitis; K27.9 Peptic ulcer, site unspecified, unspecified as acute or chronic, without hemorrhage or perforation; K64.8 Other hemorrhoids
CPT/HCPCS: 45378

== ENCOUNTER 2023-01-21 08:58 | Emergency (ER) | payer MEDICAID, SELFPAY ==
[2023-01-21 09:03] VITALS: BP 122/69; PULSE 90; RESP 18; TEMP 37.3; O2SAT 96
--- NOTE | 2023-01-21 09:30 | RT.EKG_ITS ---
APPROVED REPORT Exam: Resting ECG Reason for Exam: chest pain Patient Location: E HR:78 bpm ECG Measurements Heart Rate 78 AXIS SD 147 P 27 QRSd 104 QRS 16 QT 365 T 40 QTc 416 Conclusion Sinus rhythm...normal P axis, V-rate 60- 99 DiffuseSTTW flattening, Q waves in III and aVF, NO STEMI. No previous available for comparison.
--- NOTE | 2023-01-21 09:36 | ED.GENADUL_ITS ---
Discharge Plan Disposition Patient Disposition: Home Condition: Good Discharge Details Clinical Impression: Viral upper respiratory illness Primary Care Provider: Kwadwo Conway ED Provider: Bonnie King Home Meds and New Rx's Prescriptions: Continued aripiprazole [Abilify] 5 mg tablet 5 mg PO HS Patient Comments: Dr Garcia at [facility] prescribes trazodone 50 mg tablet See Rx Instructions PO QHS Patient Comments: no meds x3-4 months / states he is unable to get to the pharmacy Rx Instructions: Take 1/2 tab for two weeks, then stop; sertraline 50 mg tablet 50 mg PO HS hydrocortisone 2.5 % cream 1 applic topical BID PRN (Reason: rectal pain & bleeding) Qty: 20 0RF Rx Instructions: apply thin layer to rectum twice per day x4 d, then as needed for rectal pain & bleeding. omeprazole 40 mg capsule,delayed release(DR/EC) 40 mg PO DAILY Qty: 90 3RF Discharge Instructions Instructions: Upper Respiratory Infection (ED) Additional Instructions: Try Mucinex DM and recall low cough drops for your cough. Zyrtec works well for runny nose. Pseudoephedrine Sudafed works well for congestion. Tylenol or ibuprofen as needed for chest discomfort. Return to ED for severe crushing chest pain, difficulty breathing, any other concerns. Recheck with your primary care doctor if no better by next week. Medical Decision Making Patient patient was reassured that is a nonspecific virus. Symptomatic and supportive care was recommended. He is nontoxic-appearing and was discharged home. Lab Data Lab results reviewed: Yes I reviewed the patient's lab results. Lab results narrative: FLUVID negative for COVID, RSV, and influenza. ECG Data Attestation: I personally reviewed and interpreted this ECG (s) as follows: (Normal sinus rhythm at 80, normal intervals and EKG.) HPI General Date/Time Provider Initiated Documentation: 01/21/23 09:06 . HPI Narrative: This 22-year-old male patient presents with a chief complaint of runny nose and cough that have been ongoing for the past 3 days. The patient states that his lower thorax hurts and this is worse when he coughs. He says he occasionally gets a headache after he coughs but it resolves within a minute. He has had no congestion but feels like his sinuses are inflamed. He denies fever or swollen glands. There is no difficulty breathing. He has no GI symptoms. There is no pedal edema or calf pain. Related Data Home Medications Medication Instructions Recorded Confirmed aripiprazole 5 mg tablet (Abilify) 5 mg PO HS 01/27/19 05/06/22 sertraline 50 mg tablet 50 mg PO HS 06/19/21 05/06/22 hydrocortisone 2.5 % topical cream 1 applic topical BID PRN rectal 12/19/21 05/06/22 pain & bleeding #20 grams omeprazole 40 mg capsule,delayed 40 mg PO DAILY #90 caps 02/24/22 05/06/22 release trazodone 50 mg tablet See Rx Instructions PO QHS 05/06/22 05/06/22 Previous Rx's Medication Instructions Recorded hydrocortisone 2.5 % topical cream 1 applic topical BID PRN rectal 12/19/21 pain & bleeding #20 grams omeprazole 40 mg capsule,delayed 40 mg PO DAILY #90 caps 02/24/22 release Allergies Allergy/AdvReac Type Severity Reaction Status Date / Time risperidone Allergy Severe Seizure Verified 01/21/23 09:08 General Stated Complaint: RespSymp MIKHAIL: 3 Review of Systems Constitutional Constitutional: Denies chills, Denies fever(s) and Denies weakness Eyes Eyes: Denies diplopia and Reports other (no redness) ENT Ears, Nose, Mouth, and Throat: Denies otalgia, Denies nasal congestion, Reports nasal discharge, Denies neck pain and Denies sore throat Cardiovascular Cardiovascular: Denies chest pain, Denies palpitations and Denies dyspnea Respiratory Respiratory: Reports cough and Denies dyspnea Gastrointestinal Gastrointestinal: Denies abdominal pain, Denies diarrhea, Denies nausea and Denies vomiting Genitourinary Genitourinary: Denies difficulty urinating and Denies dysuria Musculoskeletal Musculoskeletal: Denies myalgias, Denies muscle weakness, Denies neck pain, Denies numbness and Reports other (edema) Integumentary/Breasts Skin/Breast: Denies change in pigmentation and Denies rash Neurologic Neurologic: Denies numbness, Denies weakness and Reports other (headache) Endocrine Endocrine: Denies palpitations PFSH All Active Problems (Updated 01/21/23 @ 10:13 by Bonnie King MD) Viral upper respiratory illness (Acute) Hypothyroidism (Chronic) Abnormal gait (Acute) Kyphosis (Acute) Tibial torsion (Acute) ADHD (Acute) Tremor (Acute) Behavioral disorder (Acute) Meatal stenosis (Acute) Depression (Chronic) Bipolar disease, chronic (Acute) PTSD (post-traumatic stress disorder) (Acute) Sleep disorder (Acute) GERD (gastroesophageal reflux disease) (Chronic) Myopia (Acute) Fracture of fifth metacarpal bone of right hand (Acute 02/05/19) Encounter for annual health examination (Acute) Weight gain (Acute) Cough productive of clear sputum (Acute) Family history of cardiovascular disorder (Acute) BRBPR (bright red blood per rectum) (Acute) Bilateral tibial torsion (Acute) Medical History Suicide attempt Surgical History Hx of removal of cyst Hx of wisdom tooth extraction Family History Mother Heart disease Uncle Heart disease Father ADD (attention deficit disorder) Bipolar disorder Social History Smoking/Tobacco Use Status: Never Second Hand Exposure: Yes Smoking risk assessment performed?: Yes Alcohol Intake: current Alcohol Intake frequency: holidays/special occasions only Drug use: Current Sobriety Substance use type: former substance user and marijuana Details: Former cannabis smoker. 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 [employer] Sexually active: No Do you think of yourself as: bisexual Current gender identity: male What is your relationship status?: never How often do you talk on the phone with friends or family?: three or more times per week How often do you get together with friends or relatives?: once per week Do you belong to any clubs or organized social groups?: yes Panel score (0-1 are the most socially isolated patients): 2 What type of physical activity do you participate in: weight lifting Duration: < 15 minutes/day Frequency: daily Yulia/Latter Day: None Special yulia needs: No Seatbelt use: always Helmet use: Yes Helmet use: sometimes Drive intox or ride w/intox bulk delivery driver: No Do you feel safe at home: Yes Do you feel safe in your relationship?: Yes Exam Const General: no acute distress, well developed, well groomed and not in acute distress Nutritional Appearance: well nourished Orientation: alert and oriented x3 HENMT Head: normocephalic and atraumatic Ears: external ears normal Mouth: oropharynx normal and moist mucous membranes Throat: posterior oropharynx normal Eyes Conjunctivae: conjunctivae normal Neck Neck: full ROM and supple Chest Chest: normal inspection of the chest Resp Effort & Inspection: normal respiratory effort Auscultation: clear to auscultation bilaterally Cardio Rate: regular rate Rhythm: regular rhythm Heart Sounds: no murmurs and no rubs GI Inspection: normal to inspection Palpation: soft, nontender and other (non distended) Auscultation: normal bowel sounds Skin General skin exam: no rashes or lesions noted and other (pink, warm, dry) Neuro General: patient alert, patient awake and patient oriented x3 Speech: speech normal Motor: other (PONCE) Sensory Exam: no sensory deficits noted Extrem General: normal to inspection, full ROM and pedal edema present Psych Mental Status: mental status grossly normal Speech and Movement: speech and movement normal Affect: normal affect Course Vital Signs Vital signs: Vital Signs Temperature 37.3 C 01/21/23 09:03 Pulse 90 01/21/23 09:03 Respiratory Rate 18 01/21/23 09:03 Blood Pressure 122/69 01/21/23 09:03 Pulse Oximetry 96 01/21/23 09:03 Temperature 37.3 C 01/21/23 09:03 Temperature Source Skin 01/21/23 09:03 Pulse 90 01/21/23 09:03 Respiratory Rate 18 01/21/23 09:03 Blood Pressure 122/69 01/21/23 09:03 Blood Pressure Position Sitting 01/21/23 09:03 Pulse Oximetry 96 01/21/23 09:03 Oxygen Delivery Method Room Air 01/21/23 09:03 Oxygen Flow Rate 0 01/21/23 09:03 Pain Level 1 01/21/23 09:03
[2023-01-21 10:04] LABS: COVID-19 PCR Negative (Negative); Influenza A PCR Negative (Negative); Influenza B PCR Negative (Negative); RSV PCR Negative (Negative)
[2023-01-21 10:05] LABS: Source Nasopharynx
[2023-01-21 10:16] VITALS: BP 123/70; PULSE 88; RESP 16; O2SAT 97
== END 2023-01-21 10:33 | disposition home or self-care (01) ==
PROVIDERS: Emergency Provider Emergency Medicine; PCP Family Medicine
DX: J06.9 Acute upper respiratory infection, unspecified (principal)
CPT/HCPCS: 87637; 93005; 99283; 93010

== ENCOUNTER 2023-03-14 13:24 | Emergency (ER) | payer MEDICAID, SELFPAY ==
[2023-03-14 13:33] VITALS: BP 122/80; PULSE 80; RESP 20; TEMP 36.8; O2SAT 100
--- NOTE | 2023-03-14 15:04 | DI.RAD_ITS ---
Exam(s) XR FOOT LT COMPLETE EXAM: XR FOOT LT COMPLETE CLINICAL HISTORY: Injury. TECHNIQUE: 2D digital imaging was performed. COMPARISON: No exams were available for comparison FINDINGS: 3 views No evidence of acute fracture nor diastasis of the Lisfranc joint. Bone density normal. No osseous lesions. No radiopaque foreign body. Small inferior calcaneal spur noted. IMPRESSION: No acute osseous findings in the foot. DATA REPOSITORY: RADIATION DOSE DELIVERED:
[2023-03-14 15:37] VITALS: BP 120/71; PULSE 79; TEMP 36.6; O2SAT 97
--- NOTE | 2023-03-14 15:56 | DI.VRAD_ITS ---
PROCEDURE INFORMATION: Exam: XR Left Foot Exam date and time: 03/14/2023 2:54 PM Age: 23 years old Clinical indication: Injury or trauma; Other: Log fell on foot; Blunt trauma; Left; Injury date: 03/13/23 TECHNIQUE: Imaging protocol: Radiologic exam of the left foot. Views: 3 or more views. Non-weightbearing AP, oblique and lateral images. COMPARISON: No relevant prior studies available. FINDINGS: Bones/joints: The bones are well-mineralized. The joint spaces are preserved. Examination negative for fracture or dislocation. Soft tissues: Unremarkable. IMPRESSION: No acute findings. Dictated and Authenticated by: Esa Chowdhury MD. Ordering:LILIBETH Enriquez MD
--- NOTE | 2023-03-14 16:51 | ED.GENADUL_ITS ---
Discharge Plan Disposition Patient Disposition: Home Discharge Details Clinical Impression: Acute left ankle pain Primary Care Provider: Kwadwo Conway ED Provider: Gisela Monson Home Meds and New Rx's Prescriptions: Continued aripiprazole [Abilify] 5 mg tablet 5 mg PO HS Patient Comments: Dr Garcia at [facility] [place] prescribes trazodone 50 mg tablet See Rx Instructions PO QHS Patient Comments: no meds x3-4 months / states he is unable to get to the pharmacy Rx Instructions: Take 1/2 tab for two weeks, then stop; sertraline 50 mg tablet 50 mg PO HS hydrocortisone 2.5 % cream 1 applic topical BID PRN (Reason: rectal pain & bleeding) Qty: 20 0RF Rx Instructions: apply thin layer to rectum twice per day x4 d, then as needed for rectal pain & bleeding. omeprazole 40 mg capsule,delayed release(DR/EC) 40 mg PO DAILY Qty: 90 3RF Discharge Instructions Instructions: Leg Pain (ED) Additional Instructions: Use your boot for the next week as needed and crutches Repeat film in 1 week with persistent pain Return earlier with worsening pain, strength or sensation change, or should you have new or worsening complaints Take Tylenol as needed for discomfort Referrals: Kwadwo Conway DO [Primary Care Provider] - Medical Decision Making Left lateral foot pain presentation after traumatic injury, x-ray was ordered, no evidence of acute abnormality left foot x-ray, placed in a boot for comfort Ibuprofen and Tylenol as needed pain Return precautions reviewed and patient expressed understanding Repeat x-ray in 1 week with persistent pain recommended HPI General Date/Time Provider Initiated Documentation: 03/14/23 13:41 . HPI Narrative: This 23-year-old male presents with report of left foot pain after dropping a log on it on Thursday. Has had difficulty ambulating since that time. Denies any additional injuries. Related Data Home Medications Medication Instructions Recorded Confirmed aripiprazole 5 mg tablet (Abilify) 5 mg PO HS 01/27/19 05/06/22 sertraline 50 mg tablet 50 mg PO HS 06/19/21 05/06/22 hydrocortisone 2.5 % topical cream 1 applic topical BID PRN rectal 12/19/21 05/06/22 pain & bleeding #20 grams omeprazole 40 mg capsule,delayed 40 mg PO DAILY #90 caps 02/24/22 05/06/22 release trazodone 50 mg tablet See Rx Instructions PO QHS 05/06/22 05/06/22 Previous Rx's Medication Instructions Recorded hydrocortisone 2.5 % topical cream 1 applic topical BID PRN rectal 12/19/21 pain & bleeding #20 grams omeprazole 40 mg capsule,delayed 40 mg PO DAILY #90 caps 02/24/22 release Allergies Allergy/AdvReac Type Severity Reaction Status Date / Time risperidone Allergy Severe Seizure Verified 01/21/23 09:08 General Stated Complaint: Orthopedic MIKHAIL: 4 PFSH All Active Problems (Updated 03/14/23 @ 16:49 by ADRIANNE Dyer) Acute left ankle pain (Acute) Hypothyroidism (Chronic) Abnormal gait (Acute) Kyphosis (Acute) Tibial torsion (Acute) ADHD (Acute) Tremor (Acute) Behavioral disorder (Acute) Meatal stenosis (Acute) Depression (Chronic) Bipolar disease, chronic (Acute) PTSD (post-traumatic stress disorder) (Acute) Sleep disorder (Acute) GERD (gastroesophageal reflux disease) (Chronic) Myopia (Acute) Fracture of fifth metacarpal bone of right hand (Acute 02/05/19) Encounter for annual health examination (Acute) Weight gain (Acute) Cough productive of clear sputum (Acute) Family history of cardiovascular disorder (Acute) BRBPR (bright red blood per rectum) (Acute) Bilateral tibial torsion (Acute) Medical History Suicide attempt Surgical History Hx of removal of cyst Hx of wisdom tooth extraction Family History Mother Heart disease Uncle Heart disease Father ADD (attention deficit disorder) Bipolar disorder Social History Smoking/Tobacco Use Status: Never Second Hand Exposure: Yes Smoking risk assessment performed?: Yes Alcohol Intake: current Alcohol Intake frequency: holidays/special occasions only Drug use: Occasionally Substance use type: marijuana Details: Former cannabis smoker. 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 [employer] Sexually active: No Do you think of yourself as: bisexual Current gender identity: male What is your relationship status?: never How often do you talk on the phone with friends or family?: three or more times per week How often do you get together with friends or relatives?: once per week Do you belong to any clubs or organized social groups?: yes Panel score (0-1 are the most socially isolated patients): 2 What type of physical activity do you participate in: weight lifting Duration: < 15 minutes/day Frequency: daily Yulia/Mu-Ism: None Special yulia needs: No Seatbelt use: always Helmet use: Yes Helmet use: sometimes Drive intox or ride w/intox sweeper driver: No Do you feel safe at home: Yes Do you feel safe in your relationship?: Yes Course Vital Signs Vital signs: Vital Signs Temperature 36.8 C 03/14/23 13:33 Pulse 80 03/14/23 13:33 Respiratory Rate 20 03/14/23 13:33 Blood Pressure 122/80 03/14/23 13:33 Pulse Oximetry 100 03/14/23 13:33 Temperature 36.6 C 03/14/23 15:37 Temperature Source Tympanic 03/14/23 15:37 Pulse 79 03/14/23 15:37 Respiratory Rate 03/14/23 13:33 Respiratory Effort Normal, Non-Labored 03/14/23 15:11 Blood Pressure 120/71 03/14/23 15:37 Pulse Oximetry 97 03/14/23 15:37 Oxygen Delivery Method Room Air 03/14/23 15:37 Oxygen Flow Rate 0 03/14/23 15:37 Pain Level 5 03/14/23 15:37
--- NOTE | 2023-03-17 07:29 | NUR.NOTE ---
Accessed PT chart to check if PT was given crutches. It appears in the notes that he received them. Documented on Ortho sheet. Nursing Note:
== END 2023-03-14 17:09 | disposition home or self-care (01) ==
PROVIDERS: Emergency Provider Physician Assistant; PCP Family Medicine
DX: M79.672 Pain in left foot (principal); W22.8XXA Striking against or struck by other objects, initial encounter
CPT/HCPCS: 29515; 99283; 73630

== ENCOUNTER 2023-05-15 14:46 | Outpatient (CLI) | payer MEDICAID, SELFPAY ==
[2023-05-15 13:46] LABS: Lithium 0.4 mmol/l (0.6-1.2)
== END 2023-05-15 14:47 | disposition home or self-care (01) ==
PROVIDERS: PCP Family Medicine; Visit Provider Family Medicine
DX: F31.9 Bipolar disorder, unspecified (principal)
CPT/HCPCS: 36415; 80178

== ENCOUNTER 2023-07-15 18:23 | Emergency (ER) | payer MEDICAID, SELFPAY ==
[2023-07-15 18:26] VITALS: BP 144/81; PULSE 75; RESP 18; O2SAT 99
--- NOTE | 2023-07-15 18:26 | W.ED.GENAD ---
HPI General Mode of arrival: ambulatory. Date/Time Provider Initiated Documentation: 07/15/23 18:26. Limitations to Documentation: no limitations. Information obtained by: patient. HPI Narrative: Patient presenting to ED with complaint of feeling off. He denies having dizziness in the sense of spinning sensation. States he just feels off balance and not right. Denies any headache, fever, cough, chest pain, shortness of breath, vomiting, abdominal pain. Did have a lot of diarrhea last night but none during the day today. He is currently taking lithium and divalproex for his bipolar disorder. Denies any overdose of medications but the lithium is relatively new in the last month. He spoke with poison control who suggested that he should come into the ED to have his levels checked. Related Data Home Medications Medication Instructions Recorded Confirmed hydrocortisone 2.5 % topical cream 1 applic topical BID PRN rectal 12/19/21 06/05/23 pain & bleeding #20 grams divalproex 250 mg tablet,delayed 250 mg PO BID #90 tabs 06/05/23 06/05/23 release (Depakote) lithium carbonate 300 mg capsule 300 mg PO BID #90 caps 06/05/23 06/05/23 Previous Rx's Medication Instructions Recorded hydrocortisone 2.5 % topical cream 1 applic topical BID PRN rectal 12/19/21 pain & bleeding #20 grams divalproex 250 mg tablet,delayed 250 mg PO BID #90 tabs 06/05/23 release (Depakote) lithium carbonate 300 mg capsule 300 mg PO BID #90 caps 06/05/23 Allergies Allergy/AdvReac Type Severity Reaction Status Date / Time risperidone Allergy Severe Seizure Verified 07/15/23 18:30 General MIKHAIL: 4 Review of Systems Narrative: Per HPI Exam Narrative Exam Narrative: Const: WDWN male in NAD. HEENT: NC/AT. Normal facial exam. Eyes: Normal conjunctiva and sclera. Neck: Supple. Trachea midline. Lungs: Normal respiratory effort. Lungs are clear. Cor: RRR without murmur/gallop. Good radial pulses. GI: Soft. NT/ND. No guarding or rebound. Neuro: A+O x 3. Normal speech, mentation. Cranial nerves II - XII grossly intact. No gross motor or sensory deficit. Ext: No C/C/E. Skin: Warm and dry without rash. Medical Decision Making Patient presenting to ED feeling off balance and not right, confused at times. He has a history of bipolar disorder and is on divalproex and lithium. The feeling of off balance is a little more recent and seems worse today. Feeling of being confused is not necessarily new and seems to wax and wane. His vital signs are normal. His exam is unremarkable. His speech is clear and he is neurologically intact. Will give a liter of fluid given the diarrhea overnight, check laboratory studies including valproic acid and lithium levels. Laboratory studies unremarkable. He has normal CBC, essentially normal BMP except for potassium of 3.4, normal liver function. [place] level is 0.4 below therapeutic range. Valproic acid is 51 just slightly into the therapeutic range. Will plan to finish his fluids and discharged home to follow-up with his primary care physician who manages his medications. Return precautions provided. Lab Data Lab results reviewed: Yes I reviewed the patient's lab results. Quality:SDOH Health Related Social Needs: No Data to Display PFSH All Active Problems (Updated 07/15/23 @ 19:51 by Vikas Gray MD) Bipolar disorder (Acute) Suicide attempt (Acute) Abnormal gait (Acute) Kyphosis (Acute) Tibial torsion (Acute) Tremor (Acute) Behavioral disorder (Acute) Meatal stenosis (Acute) Depression (Chronic) Sleep disorder (Acute) GERD (gastroesophageal reflux disease) (Chronic) Myopia (Acute) Fracture of fifth metacarpal bone of right hand (Acute 02/05/19) Encounter for annual health examination (Acute) Weight gain (Acute) Cough productive of clear sputum (Acute) Family history of cardiovascular disorder (Acute) BRBPR (bright red blood per rectum) (Acute) Bilateral tibial torsion (Acute) Medical History PTSD (post-traumatic stress disorder) Bipolar disease, chronic ADHD Hypothyroidism Surgical History Hx of removal of cyst Hx of wisdom tooth extraction Family History Mother Heart disease Uncle Heart disease Father ADD (attention deficit disorder) Bipolar disorder Social History Smoking/Tobacco Use Status: Never Second Hand Exposure: Yes Smoking risk assessment performed?: Yes Alcohol Intake: current Alcohol Intake frequency: holidays/special occasions only Drug use: Occasionally Substance use type: marijuana Details: Former cannabis smoker. 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 [employer] Sexually active: No Do you think of yourself as: bisexual Current gender identity: male What is your relationship status?: never How often do you talk on the phone with friends or family?: three or more times per week How often do you get together with friends or relatives?: once per week Do you belong to any clubs or organized social groups?: yes Panel score (0-1 are the most socially isolated patients): 2 What type of physical activity do you participate in: weight lifting Duration: < 15 minutes/day Frequency: daily Yulia/Zoroastrianism: None Special yulia needs: No Seatbelt use: always Helmet use: Yes Helmet use: sometimes Drive intox or ride w/intox courier delivery driver: No Do you feel safe at home: Yes Do you feel safe in your relationship?: Yes Discharge Plan Disposition Patient Disposition: Home Discharge Details Clinical Impression: Bipolar disorder Primary Care Provider: Kwadwo Conway ED Provider: Vikas Gray and New Rx's Prescriptions: Continued divalproex [Depakote] 250 mg tablet,delayed release (DR/EC) 250 mg PO BID Qty: 90 0RF lithium carbonate 300 mg capsule 300 mg PO BID Qty: 90 3RF hydrocortisone 2.5 % cream 1 applic topical BID PRN (Reason: rectal pain & bleeding) Qty: 20 0RF Rx Instructions: apply thin layer to rectum twice per day x4 d, then as needed for rectal pain & bleeding. Discharge Instructions Additional Instructions: You were seen in the ED for feeling off balance and confused which seems to be getting worse since starting the lithium. Your lithium and valproic acid level are in or below the low range. Symptoms may still possibly be related to starting the lithium so please follow-up with your primary care to discuss. Return to ED for any neurologic change, syncope, chest pain, palpitations, shortness of breath.
[2023-07-15 18:34] VITALS: RESP 18
[2023-07-15 18:55] LABS: Abs Immature Grans 0.01 10^3/uL (0.0-0.06); Absolute Basophil Count 0.05 10^3/uL (0.0-0.2); Absolute Eosinophil Count 0.07 10^3/uL (0.0-0.7); Absolute Lymphocyte Count 1.96 10^3/uL (1.2-3.4); Absolute Monocyte Count 0.65 10^3/uL (0.1-0.8); Absolute Neutrophil Count 4.32 10^3/uL (1.2-6.7); Basophils % 0.7; HCT 43.8 % (40.0-50.0); HGB 14.8 g/dL (13.5-17.5); Immature Grans % 0.1; Lymphocytes % 27.8; MCH 31.2 pg (27.0-33.0); MCHC 33.8 % (32.0-36.0); MCV 92 fL (80-95); MPV 10.5 fL (8.0-11.0); Monocytes % 9.2; Neutrophils % 61.2; Platelet Count 276 10^3/uL (130-400); RBC 4.75 10^6/uL (4.36-5.78); RDW 12.5 % (11.8-14.1); RDW-SD 42.5 fL; WBC 7.06 10^3/uL (4.4-10.8)
[2023-07-15] MEDS: Normal Saline 1,000 ML 1000 ML IV (19:00)
[2023-07-15 19:12] LABS: ALT 53 U/L (16-63); AST 21 U/L (15-37); Alkaline Phosphatase 82 U/L (46-116); Anion Gap 9.2 mmol/L (3-11); BUN 14 mg/dL (7-18); Bilirubin, Total 0.8 mg/dL (0.2-1.0); CO2 26.8 mmol/L (21.0-32.0); Calcium 8.9 mg/dL (8.5-10.1); Chloride 103 mmol/L (98-107); Estimated GFR 107.78 (mL/min/1.73m2); Glucose 101 mg/dL (74-106); Magnesium 1.9 mg/dL (1.8-2.4); Potassium 3.4 mmol/L (3.5-5.1); Sodium 139 mmol/L (136-145); Total Protein 7.4 g/dL (6.4-8.2)
[2023-07-15 19:16] LABS: Lithium 0.4 mmol/l (0.6-1.2); VALPROIC ACID 51.1 ug/mL
[2023-07-15 20:04] VITALS: BP 138/70; PULSE 67; RESP 18; TEMP 36.5; O2SAT 98
== END 2023-07-15 20:08 | disposition home or self-care (01) ==
PROVIDERS: Emergency Provider Emergency Medicine; PCP Family Medicine
DX: R42 Dizziness and giddiness (principal); R41.0 Disorientation, unspecified; F31.9 Bipolar disorder, unspecified; Z79.899 Other long term (current) drug therapy
CPT/HCPCS: 80053; 96360; 99284; 80164; 80178; 83735; 85025

== ENCOUNTER 2023-12-20 19:57 | Emergency (ER) | payer MEDICAID, SELFPAY ==
[2023-12-20 20:00] VITALS: BP 141/72; PULSE 70; RESP 16; TEMP 36; O2SAT 97
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
[2023-12-20 21:48] VITALS: PULSE 69; RESP 18; O2SAT 94
[2023-12-20] MEDS: Cyclobenzaprine 10 MG TAB, 3 TABS/BTL PO (21:50)
[2023-12-20 21:51] VITALS: BP 113/59; PULSE 69; RESP 18; O2SAT 94
== END 2023-12-20 21:51 | disposition home or self-care (01) ==
PROVIDERS: Emergency Provider Physician Assistant; PCP Family Medicine
DX: S06.0XAA Concussion with loss of consciousness status unknown, initial encounter (principal); M54.2 Cervicalgia; R42 Dizziness and giddiness; V00.841A Fall from standing electric scooter, initial encounter
CPT/HCPCS: 99284; 70450; 72125; 99283

== ENCOUNTER 2023-12-25 19:57 | Emergency (ER) | payer MEDICAID, SELFPAY ==
[2023-12-25 19:57] VITALS: BP 166/77; PULSE 76; RESP 18; TEMP 37.6; O2SAT 96
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
[2023-12-25] MEDS: Ibuprofen 600 MG TAB PO (20:32)
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
== END 2023-12-25 22:08 | disposition home or self-care (01) ==
PROVIDERS: Emergency Provider Nurse Practitioner Family; PCP Family Medicine
DX: S50.311A Abrasion of right elbow, initial encounter (principal); S60.811A Abrasion of right wrist, initial encounter; M25.551 Pain in right hip; F31.9 Bipolar disorder, unspecified; V28.41XA Electric (assisted) bicycle driver injured in noncollision transport accident in traffic accident, initial encounter; Y92.488 Other paved roadways as the place of occurrence of the external cause; Y93.55 Activity, bike riding
CPT/HCPCS: 99283; 73502